=== PATIENT | male | born 1950 | race Two or more races ===

== ENCOUNTER 2021-04-04 14:09 | Inpatient (IN) | payer MEDICAID, OTHER ==
[~2021-04-04] VITALS: Ht 180.3 cm; Wt 86.2 kg
[2021-04-04 15:38] LABS: BASOPHILS % 0.3 % (0.0-2.0); HEMATOCRIT. 47.4 % (42.0-52.0); HEMOGLOBIN. 15.7 g/dL (14.0-18.0); LYMPHOCYTES % 8.8 % (20.0-50.0); MEAN CORPUSCULAR HEMOGLOBIN 28.4 pg (28.0-32.0); MEAN CORPUSCULAR VOLUME 85.9 fL (80.0-94.0); MEAN PLATELET VOLUME 10.4 fl (7.4-10.4); MONOCYTES % 11.5 % (2.0-8.0); NEUTROPHILS % 79.4 % (40.0-76.0); PLATELET 149 x1000/uL (130-400); RED BLOOD CELL COUNT 5.52 mill/uL (4.7-6.1); RED CELL DISTRIBUTION WIDTH 14.3 % (11.6-14.6)
[2021-04-04 15:43] LABS: CHLORIDE 97 mEq/L (98-107)
[2021-04-04] MEDS ORDERED: SODIUM CHLORIDE 0.9% 500 ML IV ONE (19:45)
[2021-04-04] MEDS ORDERED: ONDANSETRON HCL 4MG/2ML INJ IV NR (19:45)
[2021-04-04] MEDS ORDERED: DEXAMETHASONE 4MG/ML 1ML VIAL IV NR (22:00)
[2021-04-04] MEDS ORDERED: ONDANSETRON HCL 4MG/2ML INJ IV ONE (23:15)
[2021-04-04] MEDS ORDERED: ONDANSETRON HCL 4MG/2ML INJ IV PRN (23:45)
[2021-04-04] MEDS ORDERED: MAGNESIUM/ALUMINUM HYDROXIDE/SIMETHICONE 30ML UDC PO PRN (23:45)
[2021-04-04] MEDS ORDERED: CLONIDINE 0.1MG TABLET PO PRN (23:45)
[2021-04-04] MEDS ORDERED: DOCUSATE SODIUM 100MG CAPSULE PO PRN (23:45)
[2021-04-05] MEDS: ENOXAPARIN 40MG/0.4ML SYR SUBCUT SCH ×2 (00:36→22:56)
[2021-04-05] MEDS ORDERED: AZITHROMYCIN 500MG/250ML 250 ML IV SCH (01:00)
[2021-04-05] MEDS ORDERED: CEFTRIAXONE 1 G PREMIX 50 ML IV SCH (01:00)
[2021-04-05] MEDS ORDERED: ALBUTEROL 6.7GM HFA INHALER ORI PRN (01:00)
[2021-04-05 02:18] VITALS: BP 121/69
[2021-04-05 04:00] VITALS: BP 119/82
[2021-04-05 06:00] LABS: CLARITY URINE CLEAR (CLEAR); COLOR URINE DARK YELLOW (YELLOW); KETONES URINE 4+ (NEGATIVE); LEUKOCYTE ESTERASE URINE NEGATIVE (NEGATIVE); NITRITE URINE NEGATIVE (NEGATIVE); OCCULT BLOOD URINE NEGATIVE (NEGATIVE); PROTEIN URINE 1+ (NEGATIVE); SPECIFIC GRAVITY URINE 1.025 (1.005-1.030)
[2021-04-05 06:21] LABS: CHLORIDE 101 mEq/L (98-107)
[2021-04-05 06:23] LABS: BASOPHILS % 0.1 % (0.0-2.0); HEMOGLOBIN. 13.3 g/dL (14.0-18.0); LYMPHOCYTES % 10.3 % (20.0-50.0); MEAN CORPUSCULAR HEMOGLOBIN 29.4 pg (28.0-32.0); MEAN CORPUSCULAR VOLUME 84.3 fL (80.0-94.0); MEAN PLATELET VOLUME 11.3 fl (7.4-10.4); MONOCYTES % 7.2 % (2.0-8.0); NEUTROPHILS % 82.4 % (40.0-76.0); PLATELET 151 x1000/uL (130-400)
[2021-04-05 06:26] LABS: PHOSPHORUS 2.8 mg/dL (2.5-4.9)
[2021-04-05 06:40] LABS: *AMPHETAMINES SCREEN URINE NEGATIVE (NEGATIVE); *BARBITURATES SCREEN URINE NEGATIVE (NEGATIVE); *COCAINE SCREEN URINE NEGATIVE (NEGATIVE); CANNABINOID URINE SCREEN NEGATIVE (NEGATIVE); METHADONE URINE SCREEN NEGATIVE (NEGATIVE); OPIATES URINE SCREEN NEGATIVE (NEGATIVE); PHENCYCLIDINE URINE SCREEN NEGATIVE (NEGATIVE)
[2021-04-05 06:41] LABS: *BENZODIAZEPINES SCREEN URINE NEGATIVE (NEGATIVE)
[2021-04-05 08:00] VITALS: BP 103/53
[2021-04-05] MEDS ORDERED: DEXAMETHASONE 4MG/ML 1ML VIAL IV SCH (09:00)
[2021-04-05 12:00] VITALS: BP 108/61
[2021-04-05 20:00] VITALS: BP 110/58
[2021-04-06] VITALS: BP 120/62
[2021-04-06] MEDS: CEFTRIAXONE 1,000 MG in DEXTROSE 5% WATER 50 ML IV SCH (02:09)
[2021-04-06] MEDS: AZITHROMYCIN 500 MG in DEXT 5% WATER 250 ML IV SCH (02:09)
[2021-04-06 04:00] VITALS: BP 116/72
[2021-04-06 08:00] VITALS: BP 92/43
[2021-04-06] MEDS ORDERED: ACETAMINOPHEN 325MG TABLET PO PRN (08:00)
[2021-04-06] MEDS: DEXAMETHASONE 10 MG/ML VIAL IV SCH (08:16)
[2021-04-06] MEDS: GUAIFENESIN 200MG/10ML SUGAR FREE UDC PO PRN (08:23)
[2021-04-06 12:00] VITALS: BP 95/40
[2021-04-06 16:00] VITALS: BP 103/59
[2021-04-06 20:00] VITALS: BP 119/60
[2021-04-06] MEDS: IBUPROFEN 400MG TABLET PO PRN (21:12)
[2021-04-06] MEDS: ENOXAPARIN 40MG/0.4ML SYR SUBCUT SCH (21:12)
[2021-04-07] VITALS: BP 96/52
[2021-04-07] MEDS: CEFTRIAXONE 1,000 MG in DEXTROSE 5% WATER 50 ML IV SCH (01:52)
[2021-04-07] MEDS: AZITHROMYCIN 500 MG in DEXT 5% WATER 250 ML IV SCH (01:52)
[2021-04-07 04:00] VITALS: BP 120/64
[2021-04-07] MEDS: DEXAMETHASONE 10 MG/ML VIAL IV SCH (08:27)
[2021-04-07] MEDS: GUAIFENESIN 200MG/10ML SUGAR FREE UDC PO PRN (08:33)
[2021-04-07 09:00] VITALS: BP 117/75
[2021-04-07 16:00] VITALS: BP 132/69
[2021-04-07] MEDS: IBUPROFEN 400MG TABLET PO PRN (16:03)
[2021-04-07 20:00] VITALS: BP 95/44
[2021-04-07] MEDS: ENOXAPARIN 40MG/0.4ML SYR SUBCUT SCH (23:40)
[2021-04-08] VITALS (7 sets, daily range): BP systolic 93–128; BP diastolic 48–84
[2021-04-08] MEDS: CEFTRIAXONE 1,000 MG in DEXTROSE 5% WATER 50 ML IV SCH (02:00)
[2021-04-08] MEDS: AZITHROMYCIN 500 MG in DEXT 5% WATER 250 ML IV SCH (03:00)
[2021-04-08] MEDS: GUAIFENESIN 200MG/10ML SUGAR FREE UDC PO PRN (08:17)
[2021-04-08] MEDS: DEXAMETHASONE 10 MG/ML VIAL IV SCH (08:17)
[2021-04-08] MEDS: HYDROXYZINE 25MG TABLET PO PRN (22:11)
[2021-04-08] MEDS: ENOXAPARIN 40MG/0.4ML SYR SUBCUT SCH (23:09)
[2021-04-09] VITALS: BP 108/66
[2021-04-09] MEDS: AZITHROMYCIN 500 MG in DEXT 5% WATER 250 ML IV SCH (03:43)
[2021-04-09] MEDS: CEFTRIAXONE 1,000 MG in DEXTROSE 5% WATER 50 ML IV SCH (03:43)
[2021-04-09 04:00] VITALS: BP 90/63
[2021-04-09 08:00] VITALS: BP 107/54
[2021-04-09] MEDS: DEXAMETHASONE 10 MG/ML VIAL IV SCH (08:54)
[2021-04-09 12:00] VITALS: BP 123/70
[2021-04-09 16:00] VITALS: BP 103/49
[2021-04-09 20:00] VITALS: BP 105/49
[2021-04-09] MEDS: ENOXAPARIN 40MG/0.4ML SYR SUBCUT SCH (20:20)
[2021-04-09] MEDS ORDERED: AZITHROMYCIN 500 MG TABLET PO SCH (22:00)
[2021-04-10 00:01] VITALS: BP 118/69
[2021-04-10] MEDS: CEFTRIAXONE 1,000 MG in DEXTROSE 5% WATER 50 ML IV SCH (01:47)
[2021-04-10 04:00] VITALS: BP 115/71
[2021-04-10 07:53] LABS: HEMATOCRIT. 41.9 % (42.0-52.0); HEMOGLOBIN. 14.2 g/dL (14.0-18.0); MEAN CORPUSCULAR HEMOGLOBIN 28.8 pg (28.0-32.0); MEAN CORPUSCULAR VOLUME 84.9 fL (80.0-94.0); MEAN PLATELET VOLUME 9.5 fl (7.4-10.4); PLATELET 328 x1000/uL (130-400); RED BLOOD CELL COUNT 4.94 mill/uL (4.7-6.1); RED CELL DISTRIBUTION WIDTH 13.9 % (11.6-14.6)
[2021-04-10 07:55] LABS: CHLORIDE 107 mEq/L (98-107)
[2021-04-10 08:00] VITALS: BP 139/75
[2021-04-10 08:02] LABS: PHOSPHORUS 2.7 mg/dL (2.5-4.9)
[2021-04-10] MEDS: DEXAMETHASONE 10 MG/ML VIAL IV SCH (08:02)
[2021-04-10 09:09] LABS: BG BASE EXCESS -3.9 mmol/L (-2.0-2.0); BG CARBOXYHEMOGLOBIN 0.1 % (0.5-1.5); BG DEOXYHEMOGLOBIN 8.8 % (0.0-5.0); BG FRACTION INSPIRED OXYGEN 21; BG HCO3 ACT 17.6 mmol/L (22.0-26.0); BG METHEMOGLOBIN 0.4 % (0.0-1.5); BG OXYGEN SATURATION 91.2 % (92.0-98.5); BG OXYHEMOGLOBIN 90.7 % (94.0-97.0); BG PCO2 24.8 mmHg (35.0-45.0); BG PO2 58.8 mmHg (75.0-100.0); BG SAMPLE SITE RIGHT RADIAL; BG TOTAL HEMOGLOBIN 15.8 g/dL (12.0-18.0); BG VENT MODE ROOM AIR
[2021-04-10 12:00] VITALS: BP 124/72
[2021-04-10 16:00] VITALS: BP 123/64
[2021-04-10 16:33] LABS: PLATELET ESTIMATE NORMAL
[2021-04-10] MEDS: ENOXAPARIN 40MG/0.4ML SYR SUBCUT SCH (19:34)
[2021-04-10 20:00] VITALS: BP 131/75
[2021-04-11] VITALS: BP 114/55
[2021-04-11 04:00] VITALS: BP 129/71
[2021-04-11 08:00] VITALS: BP 113/69
[2021-04-11] MEDS: DEXAMETHASONE 10 MG/ML VIAL IV SCH (08:08)
[2021-04-11 12:00] VITALS: BP 121/76
[2021-04-11 16:00] VITALS: BP 115/74
[2021-04-11 20:00] VITALS: BP 101/53
[2021-04-11] MEDS: HYDROXYZINE 25MG TABLET PO PRN (20:08)
[2021-04-11] MEDS: ENOXAPARIN 40MG/0.4ML SYR SUBCUT SCH (20:08)
[2021-04-12 00:01] VITALS: BP 107/52
[2021-04-12 04:01] VITALS: BP 118/66
[2021-04-12 07:28] LABS: HEMATOCRIT. 44.3 % (42.0-52.0); HEMOGLOBIN. 14.8 g/dL (14.0-18.0); MEAN CORPUSCULAR HEMOGLOBIN 28.4 pg (28.0-32.0); MEAN CORPUSCULAR VOLUME 85.1 fL (80.0-94.0); MEAN PLATELET VOLUME 9.9 fl (7.4-10.4); PLATELET 367 x1000/uL (130-400); RED BLOOD CELL COUNT 5.21 mill/uL (4.7-6.1)
[2021-04-12 08:00] VITALS: BP 128/64
[2021-04-12] MEDS: DEXAMETHASONE 10 MG/ML VIAL IV SCH (08:02)
[2021-04-12 08:10] LABS: CHLORIDE 108 mEq/L (98-107)
[2021-04-12 08:23] LABS: PHOSPHORUS 3.2 mg/dL (2.5-4.9)
[2021-04-12 09:52] LABS: BG BASE EXCESS 0.1 mmol/L (-2.0-2.0); BG CARBOXYHEMOGLOBIN 0.7 % (0.5-1.5); BG DEOXYHEMOGLOBIN 6.8 % (0.0-5.0); BG FRACTION INSPIRED OXYGEN 21; BG HCO3 ACT 21.8 mmol/L (22.0-26.0); BG METHEMOGLOBIN 0.3 % (0.0-1.5); BG OXYGEN SATURATION 93.1 % (92.0-98.5); BG OXYHEMOGLOBIN 92.2 % (94.0-97.0); BG PCO2 28.1 mmHg (35.0-45.0); BG PH 7.507 (7.350-7.450); BG PO2 61.4 mmHg (75.0-100.0); BG SAMPLE SITE LEFT BRACHIAL; BG TOTAL HEMOGLOBIN 15.3 g/dL (12.0-18.0); BG VENT MODE ROOM AIR
[2021-04-12 12:00] VITALS: BP 113/70
[2021-04-12 13:41] LABS: PLATELET ESTIMATE NORMAL
[2021-04-12 16:00] VITALS: BP 94/68
[2021-04-12 20:00] VITALS: BP 115/71
[2021-04-12] MEDS: ENOXAPARIN 40MG/0.4ML SYR SUBCUT SCH (23:42)
[2021-04-13] VITALS: BP 115/74
[2021-04-13 04:00] VITALS: BP 94/54
[2021-04-13 07:27] LABS: HEMATOCRIT. 42.5 % (42.0-52.0); HEMOGLOBIN. 14.3 g/dL (14.0-18.0); MEAN CORPUSCULAR HEMOGLOBIN 28.7 pg (28.0-32.0); PLATELET 350 x1000/uL (130-400); RED CELL DISTRIBUTION WIDTH 13.7 % (11.6-14.6)
[2021-04-13 08:00] VITALS: BP 124/73
[2021-04-13 08:55] LABS: CHLORIDE 106 mEq/L (98-107)
[2021-04-13 09:08] LABS: PHOSPHORUS 3.3 mg/dL (2.5-4.9)
[2021-04-13] MEDS: DEXAMETHASONE 10 MG/ML VIAL IV SCH (10:05)
[2021-04-13 12:00] VITALS: BP 120/70
[2021-04-13] MEDS ORDERED: DEXTL PO (12:15)
[2021-04-13] MEDS ORDERED: MED4 MT (12:15)
[2021-04-13] MEDS ORDERED: IBUP-2741 PO (12:15)
[2021-04-13] MEDS ORDERED: ALBU6.7H9 ORI (12:15)
[2021-04-13 16:00] VITALS: BP 130/73
[2021-04-13 20:00] VITALS: BP 109/53
[2021-04-13 21:22] LABS: PLATELET ESTIMATE NORMAL
[2021-04-13] MEDS: ENOXAPARIN 40MG/0.4ML SYR SUBCUT SCH (23:52)
[2021-04-14] VITALS: BP 101/60
[2021-04-14 04:00] VITALS: BP 92/59
[2021-04-14 08:00] VITALS: BP 125/80
[2021-04-14] MEDS: DEXAMETHASONE 10 MG/ML VIAL IV SCH (08:45)
[2021-04-14 12:00] VITALS: BP 121/68
[2021-04-14 16:00] VITALS: BP 112/72
[2021-04-14 16:19] VITALS: BP 112/72
[2021-04-14] MEDS ORDERED: ENOXAPARIN 40MG/0.4ML SYR SUBCUT SCH (21:00)
== END 2021-04-14 17:15 | disposition home or self-care (01) | DRG 720 ==
LOC: ER 14:18 → 7WST 23:13 → SUPCPDRO 23:36 → ENRESERV 04-05 01:34 → 7WST 04-09 15:06 → 7EST 04-12 18:45
PROVIDERS: ADMIT Internal Medicine; ATTEND Internal Medicine
DX: A41.89 Other specified sepsis (principal); J96.01 Acute respiratory failure with hypoxia; J12.82 Pneumonia due to coronavirus disease 2019; U07.1 COVID-19; F17.200 Nicotine dependence, unspecified, uncomplicated; T38.0X5A Adverse effect of glucocorticoids and synthetic analogues, initial encounter; Z79.899 Other long term (current) drug therapy; Y92.89 Other specified places as the place of occurrence of the external cause
CPT/HCPCS: 36415; 36600; 71045; 80048; 80053; 80305; 81003; 82375; 82728; 82805; 83615; 83735; 84100; 84145; 85025; 85379; 86140; 87426; 93005; 94618; 99285; J0456; J0696; J1100; J1650; J2405; J7060